=== PATIENT | female | born 1990 ===

== ENCOUNTER 2016-07-04 12:07 | Emergency (ER) | payer SELFPAY ==
[~2016-07-04] VITALS: Ht 157.5 cm; Wt 70.0 kg
[~2016-07-04 12:07] MED LIST: LEVOIUD; ONDA4TAB10 SL
[2016-07-04 12:10] VITALS: BP 110/82; TEMP 36.8; Ht 157.5 cm; Wt 70.0 kg
[2016-07-04] MEDS ORDERED: ACETAMINOPHEN 500 MG TAB PO STA (12:26)
[2016-07-04] MEDS ORDERED: CYCLOBENZAPRINE HCL 10 MG TAB PO STA (12:26)
--- NOTE | 2016-07-04 12:44 | DIAGNOSTIC IMAGING REPORT ---
RIGHT ANKLE MIN 3 VIEWS ROUTINE CLINICAL HISTORY: Right ankle pain following injury. COMPARISON: None FINDINGS: Alignment of the right ankle is anatomic. There is cortical irregularity along the fibular tip which suggests age indeterminate avulsion injury. No additional fractures are present. Talar dome is intact. There is minimal posterior calcaneal spurring. IMPRESSION: Cortical irregularity of the fibular tip which suggests age indeterminate avulsion injury. No additional fractures identified. Electronically signed by: Kraig Salgado M.D. 07/04/2016 12:43 PM Dictated Date/Time: 07/04/2016 12:41 PM
--- NOTE | 2016-07-04 13:04 | EMERGENCY ROOM VISIT NOTE ---
History First contact with patient: 12:14 Chief Complaint: FALL Stated Complaint: FALL, HEAD/FOOT PAIN History of Present Illness The patient is a 26 year old female who presents to the Emergency Room with complaints of falling last evening when she was intoxicated. The patient states that she slipped going up her steps and fell backwards striking the back of her head on the left side on the ground. She denies any loss of consciousness. She states this morning she just had a lump on that area with minimal pain. The patient denies any visual changes, dizziness, nausea or vomiting. The patient states that she feels sore over the entire upper body. She also is complaining of right ankle pain. She is unsure what she did to the right ankle. She states it hurts with certain movements. The patient denies any prior injury to her right ankle. The patient denies any foot pain. Review of Systems 10 system review was performed and was negative unless stated otherwise history of present illness. Past Medical/Surgical History No significant past medical history Social History Smoking Status: Current Every Day Smoker Alcohol Use: occasionally Marital Status: single Housing Status: lives with roommate Occupation Status: [employer] Current/Historical Medications Scheduled Levonorgestrel (Iud) (Mirena), Unknown Dose EVERY 5 YEARS Allergies Coded Allergies: No Known Allergies (Unverified , 07/04/16) Physical Exam Vital Signs Date Time Temp Pulse Resp B/P Pulse Ox O2 Delivery O2 Flow Rate FiO2 07/04/16 12:10 36.8 65 18 110/82 100 Room Air Physical Exam GENERAL: 26-year-old female appears in no acute distress. MENTAL Status: Alert and oriented 3 HEAD: There is a small palpable lump on the left posterior occipital region which is tender to palpation. There is no open lacerations. The remainder of hand is unremarkable. EYES: PERRLA. EOMs intact. EARS: Canals clear. TMs without hemotympanum NECK: Supple, no lymphadenopathy noted. No carotid bruits noted. LUNGS: Clear auscultation without wheezes rales or rhonchi. CARDIAC: Regular rate and rhythm without murmur. Pulses is full and equal throughout. CERVICAL SPINE: Patient is nontender to palpation over the spinous processes. She is tender to palpation over the paravertebral region bilaterally. Full range of motion of the cervical spine. NEURO:Cranial nerves two through 12 intact. Cerebellar function intact with [id number]. Fine motor intact with alternating finger motions. RIGHT ANKLE: No gross bony deformity noted no erythema or edema noted. The patient is tender to palpation over the medial malleolus otherwise nontender. Lateral malleolus is nontender. Patient has pain with dorsiflexion. Sensation is intact. Medical Decision & Procedures ER Provider Diagnostic Interpretation: RIGHT ANKLE MIN 3 VIEWS ROUTINE CLINICAL HISTORY: Right ankle pain following injury. COMPARISON: None FINDINGS: Alignment of the right ankle is anatomic. There is cortical irregularity along the fibular tip which suggests age indeterminate avulsion injury. No additional fractures are present. Talar dome is intact. There is minimal posterior calcaneal spurring. IMPRESSION: Cortical irregularity of the fibular tip which suggests age indeterminate avulsion injury. No additional fractures identified. Electronically signed by: Kraig Salgado M.D. 07/04/2016 12:43 PM Dictated Date/Time: 07/04/2016 12:41 PM Medications Administered Medications (Trade) Dose Ordered Sig/Cheryl Route Start Time Stop Time Status Last Admin Dose Admin Acetaminophen (Tylenol Tab) 1,000 mg NOW STAT PO 07/04/16 12:26 07/04/16 12:29 DC 07/04/16 12:39 1,000 MG Cyclobenzaprine HCl (Flexeril Tab) 10 mg NOW STAT PO 07/04/16 12:26 07/04/16 12:29 DC 07/04/16 12:38 10 MG ED Course The patient was evaluated. The patient was given Tylenol 1 g by mouth and Flexeril 10 mg by mouth. X-ray of the right ankle was ordered and interpreted by the radiologist myself as above with a small avulsion fracture at the tip of the fibula age indeterminate. The patient is nontender to palpation over the lateral malleolus therefore I think this is old. The patient was placed in a gel splint. She has crutches with her to aid in ambulation. The patient was discharged home in stable condition. Medical Decision The patient did not have any neurologic deficits and did not have any loss of consciousness. I do not feel that a CT the head is indicated at this time. Impression Primary Impression: Head contusion Additional Impression: Right ankle sprain Departure Information Dispostion Home / Self-Care Condition GOOD Referrals No Doctor, Assigned (PCP) Forms HOME CARE DOCUMENTATION FORM, IMPORTANT VISIT INFORMATION Patient Instructions ED Head Injury Closed, My [facility] Additional Instructions Follow head injury handout instructions. Any problems return to ER. Tylenol as needed for pain. Wear gel splint and use crutches for ambulation until pain is tolerable without them. Ice and elevation to the right foot and ankle over the next 24 hours. If symptoms are not improving in 3-5 days recommend follow- up with family doctor or orthopedics. Problem Qualifiers
[2016-07-04 13:34] VITALS: PULSE 67; O2SAT 99
== END 2016-07-04 13:35 | disposition home or self-care (01) ==
LOC: C.EDB 12:08 → C.EDD 13:35
DX: S00.93XA Contusion of unspecified part of head, initial encounter (principal); S93.401A Sprain of unspecified ligament of right ankle, initial encounter; W10.9XXA Fall (on) (from) unspecified stairs and steps, initial encounter; F17.210 Nicotine dependence, cigarettes, uncomplicated